=== PATIENT | female | born 1975 | race Caucasian/White ===

== ENCOUNTER 2024-05-11 17:30 | Emergency (ER) | payer SELFPAY ==
[~2024-05-11] VITALS: Ht 165.1 cm; Wt 75.0 kg
[2024-05-11 17:34] VITALS: BP 124/86; PULSE 68; RESP 16; TEMP 37; O2SAT 99
== END 2024-05-11 17:45 | disposition left against medical advice (07) ==
LOC: ER 17:30
DX: M25.562 Pain in left knee (principal); Z53.21 Procedure and treatment not carried out due to patient leaving prior to being seen by health care provider